=== PATIENT | female | born 2000 | race Two or more races ===

== ENCOUNTER 2023-05-03 00:07 | Emergency (ER) | payer OTHER ==
[~2023-05-03] VITALS: Ht 170.2 cm; Wt 63.5 kg
== END 2023-05-03 04:44 ==
LOC: ER 00:07
DX: R10.13 Epigastric pain (principal); R07.89 Other chest pain

== ENCOUNTER 2023-08-17 16:44 | Emergency (ER) | payer OTHER ==
[~2023-08-17] VITALS: Ht 165.1 cm; Wt 59.0 kg
[2023-08-17 17:57] LABS: HEMATOCRIT 43.5 % (39.0-48.0); HEMOGLOBIN 15.2 g/dL (13-16.00); MEAN CELL VOLUME 90.5 fL (80.0-100.00); MEAN CORPUSCULAR HEMOGLOBIN 31.6 pg (27.00-32.0); MEAN CORPUSCULAR HGB CONC 34.9 g/dl (32.0-36.0); PLATELET COUNT 235 K/uL (150-450); RED CELL DISTRIBUTION WIDTH 12.9 % (11.5-14.5)
[2023-08-17 18:09] LABS: PH,URINE 7.5 (5.0-8.0); URINE APPEARANCE Clear; URINE BILIRRUBIN Negative (NEGATIVE); URINE BLOOD Negative; URINE COLOR Yellow; URINE GLUCOSE Negative (NEGATIVE); URINE LEUKOCYTE Negative; URINE NITRATE Negative; URINE PROTEIN Negative (NEGATIVE); URINE UROBILINOGEN 0.2 E.U./dl
[2023-08-17 18:18] LABS: URINE BACTERIA 1.2 uL (0.0-1933); URINE WBC 0.1 uL (0.0-23.2)
[2023-08-17 18:19] LABS: BILIRUBIN TOTAL 0.59 mg/dL (0.3-1.2); CALCIUM 9.5 mg/dL (8.5-10.1); CREATININE SERUM 1.16 mg/dL (0.70-1.30); GFR 78.02; GLOBULINA 3.6 G/DL (2.4-3.5); POTASSIUM 3.02 mEq/L (3.5-5.1); TOTAL PROTEIN 7.6 gm/dL (6.4-8.2)
== END 2023-08-17 19:15 | disposition home or self-care (01) ==
LOC: EDSEX 16:44 → ER 16:44
PROVIDERS: General Practice
DX: K29.70 Gastritis, unspecified, without bleeding (principal)

== ENCOUNTER → 2023-11-06 | Emergency (ER) | payer OTHER ==
[~2023-11-06] VITALS: Ht 208.3 cm; Wt 61.2 kg
[~2023-11-06] MED LIST: ANTIVERT25 M2 PO; MELOXICAM15 MG PO; PEPCID AC20 MG PO; ZOFRAN8 MG PO
== END | disposition left against medical advice (07) ==
LOC: ER 20:59
DX: Z53.21 Procedure and treatment not carried out due to patient leaving prior to being seen by health care provider (principal)